=== PATIENT | female | born 1940 | race African-American/Black ===

== ENCOUNTER 2018-08-28 16:24 | Emergency (ER) | payer SELFPAY ==
[~2018-08-28] VITALS: Ht 167.6 cm; Wt 53.8 kg
[2018-08-28 16:55] VITALS: BP 134/64; PULSE 92; RESP 18; Ht 167.6 cm; Wt 53.8 kg
== END 2018-08-28 20:25 | disposition left against medical advice (07) ==
LOC: E/R 16:24
DX: Z53.21 Procedure and treatment not carried out due to patient leaving prior to being seen by health care provider (principal)